=== PATIENT | female | born 1980 | race Caucasian/White ===

== ENCOUNTER 2017-12-08 00:09 | Emergency (ER) | payer SELFPAY ==
[2017-12-08] MEDS ORDERED: Dexamethasone 4 MG TAB ONE (01:45)
--- NOTE | 2017-12-08 07:40 | RAD ---
2 VIEWS CHEST: Date: 12/08/17 HISTORY: Fever. FINDINGS: PA and lateral views of the chest obtained. Two views of chest demonstrate the lungs to be well aerated. No evidence of active intrathoracic dise ase is seen. No evidence of effusions, pneumonia, or pneumothorax seen. IMPRESSION: Unremarkable 2 views chest. POS: [facility]
== END 2017-12-08 03:05 | disposition home or self-care (01) ==
LOC: ERS 00:09
DX: J11.1 Influenza due to unidentified influenza virus with other respiratory manifestations (principal); F17.210 Nicotine dependence, cigarettes, uncomplicated; Z71.6 Tobacco abuse counseling
CPT/HCPCS: 71046; 87081; 87430; 99406; J8540